=== PATIENT | female | born 1960 | race Caucasian/White ===

== ENCOUNTER 2019-05-20 11:08 | Emergency (ER) | payer MEDICAID ==
[~2019-05-20] VITALS: Ht 147.3 cm; Wt 78.1 kg
[2019-05-20 11:27] VITALS: BP 161/92
--- NOTE | 2019-05-20 11:30 | NUR ---
AMBULATED TO LOBBY.
--- NOTE | 2019-05-20 13:10 | NUR ---
AMBULATED TO ER BED 1
[2019-05-20] MEDS ORDERED: HYDROcodone/APAP 5/325 MG 1 TAB TAB PO ONE (13:45)
[2019-05-20] MEDS ORDERED: KETOROLAC 60 MG/2 ML VIAL IM ONE (13:45)
--- NOTE | 2019-05-20 13:57 | NUR ---
PO/IM MEDS GIVEN-NADR AT THIS TIME
--- NOTE | 2019-05-20 14:35 | NUR ---
PT BIB DAUGHTER WITH C/O AMANDA KNEE PAIN & SWOLLEN X 2 MONTHS. MILD SWELLING, STATES DIFFICULTY IN MOVEMENT OF HER KNEES. WITHDRAWL TO TOUCH . DENIES TRAUMA OR INJURY AT THE LEG. CMS PRSENT , ABLE TO MOVE THE FOOT TOES. PT STATES HAS NOT SEEN ANY PROVIDER FOR THE PAIN MAMAGEMENT . NO MEDS TAKEN AT HOME. RESP EVEN AND NON-LABORED. WILL CONTINUE TO MONITOR PT. NO PAST MEDICAL HX. NO ALLERGIC TO ANY MEDS. MED HX: DENIES
--- NOTE | 2019-05-20 14:51 | NUR ---
PLACED EDITH WRAP ON RIGHT KNEE
--- NOTE | 2019-05-20 14:52 | NUR ---
PMS WNL POST EDITH WRAP
[2019-05-20 15:47] VITALS: BP 133/70
== END 2019-05-20 15:47 | disposition home or self-care (01) ==
LOC: MED 11:08
DX: M17.11 Unilateral primary osteoarthritis, right knee (principal); G89.29 Other chronic pain
CPT/HCPCS: 73562; 96372; 99283; J1885; Q0092

== ENCOUNTER 2023-09-11 02:17 | Emergency (ER) | payer SELFPAY ==
[~2023-09-11] VITALS: Ht 149.9 cm; Wt 81.2 kg
[2023-09-11 02:29] VITALS: BP 166/79; PULSE 75; RESP 20; TEMP 98; O2SAT 98
[2023-09-11] MEDS ORDERED: predniSONE 20 MG TAB PO ONE (05:10)
[2023-09-11] MEDS ORDERED: DIPH25TA53 PO (05:12)
[2023-09-11] MEDS ORDERED: PRED20TA5 PO (05:12)
== END 2023-09-11 06:00 | disposition home or self-care (01) ==
LOC: MED 02:17
DX: L50.0 Allergic urticaria (principal); I10 Essential (primary) hypertension; Z79.899 Other long term (current) drug therapy
CPT/HCPCS: 99283; J7512; Q0163

== ENCOUNTER 2024-04-14 13:52 | Emergency (ER) | payer OTHER ==
[~2024-04-14] VITALS: Ht 152.4 cm; Wt 68.0 kg
[~2024-04-14 13:52] MED LIST: DIPH25TA53 PO; PRED20TA5 PO
[2024-04-14 13:57] VITALS: BP 137/65; PULSE 70; RESP 20; TEMP 97.8; O2SAT 98
[2024-04-14] MEDS ORDERED: ACYC-279 PO (14:31)
[2024-04-14] MEDS ORDERED: GABA300C PO (14:31)
[2024-04-14] MEDS ORDERED: PRED20TA5 PO (14:31)
[2024-04-14] MEDS ORDERED: NAPR-1704 PO (14:31)
[2024-04-14] MEDS: KETOROLAC 30 MG/ML VIAL IM ONE (14:42)
[2024-04-14 14:43] VITALS: BP 137/65; PULSE 70; RESP 20; TEMP 97.8; O2SAT 98
== END 2024-04-14 14:43 | disposition home or self-care (01) ==
LOC: MED 13:52
DX: B02.9 Zoster without complications (principal); I10 Essential (primary) hypertension; Z79.899 Other long term (current) drug therapy
CPT/HCPCS: 96372; 99283; J1885